=== PATIENT | female | born 1970 | race African-American/Black ===

== ENCOUNTER 2019-02-13 15:32 | Inpatient (IN) | payer OTHER ==
--- NOTE | 2019-02-13 16:04 | RADIOLOGY REPORT (SQ) ---
EXAM DESCRIPTION: CT HEAD WITHOUT COMPLETED DATE/TIME: 02/13/2019 3:52 pm REASON FOR STUDY: bed 19 stroke alert COMPARISON: None. TECHNIQUE: Axial images acquired through the brain without intravenous contrast. Images reviewed wi th bone, brain and subdural windows. Additional sagittal and coronal reconstructions were generated. Images stored on PACS. All CT scanners at this facility use dose modulation, iterative reconstruction, and/or weight based d osing when appropriate to reduce radiation dose to as low as reasonably achievable (ALARA). [facility]: Dose Right [facility]: CareDose [facility]: Dose Right [facility]: Teradose 4D [facility]: [employer] RADIATION DOSE: CT Rad equipment meets quality standard of care and radiation dose reduction techniq ues were employed. CTDIvol: 53.2 mGy. DLP: 964 mGy-cm. mGy. LIMITATIONS: None. FINDINGS: VENTRICLES: Normal size and contour. CEREBRUM: No masses. No hemorrhage. No midline shift. No evidence for acute infarction. Normal gra y/white matter differentiation. No areas of low density in the white matter. CEREBELLUM: No masses. No hemorrhage. No alteration of density. No evidence for acute infarction. EXTRAAXIAL SPACES: No fluid collections. No masses. ORBITS AND GLOBE: No intra- or extraconal masses. Normal contour of globe without masses. CALVARIUM: No fracture. PARANASAL SINUSES: No fluid or mucosal thickening. SOFT TISSUES: No mass or hematoma. OTHER: No other significant finding. IMPRESSION: No acute intracranial pathology. No CT evidence of acute stroke or hemorrhage. EVIDENCE OF ACUTE STROKE: NO. Findings reported to the emergency department by the CORE critical findings reporting system at the t callie of interpretation. COMMENT: Quality ID # [id number]: Final reports with documentation of one or more dose reduction techniques (e.g., Automated exposure control, adjustment of the mA and/or kV according to patient size, use of iterative reconstruction technique) TECHNICAL DOCUMENTATION: JOB ID: [id number] [employer]- All Rights Reserved Reading location - IP/workstation name: [email or web address]
[2019-02-13 16:05] LABS: ABSOLUTE EOSINOPHILS # (AUTO) 0.1 10^3/uL (0.0-0.6); ABSOLUTE LYMPHOCYTES (AUTO) 2.5 10^3/uL (0.5-4.7); ABSOLUTE MONOCYTES (AUTO) 0.7 10^3/uL (0.1-1.4); ABSOLUTE NEUT (AUTO) 4.4 10^3/uL (1.7-8.2); BASOPHILS % (AUTO) 0.6 % (0-2); EOSINOPHILS % (AUTO) 1.1 % (0-6); HEMATOCRIT 39.3 % (36.0-47.0); HEMOGLOBIN 13.4 g/dL (12.0-15.5); LYMPHOCYTES % (AUTO) 32.4 % (13-45); MEAN CORPUSCULAR HEMOGLOBIN 34.5 pg (27.0-33.4); MEAN CORPUSCULAR HGB CONC 34.2 g/dL (32.0-36.0); MEAN CORPUSCULAR VOLUME 101 fl (80-97); PLATELET COUNT 203 10^3/uL (150-450); RED BLOOD COUNT 3.89 10^6/uL (3.72-5.28); RED CELL DISTRIBUTION WIDTH 13.8 % (11.5-14.0); SEGMENTED NEUTROPHILS % (AUTO) 56.9 % (42-78); TOTAL CELLS COUNTED % (AUTO) 100 %; WHITE BLOOD COUNT 7.7 10^3/uL (4.0-10.5)
[2019-02-13 16:06] LABS: INTERNATIONAL RATION (INR) 1.01; PROTHROMBIN TIME 13.3 SEC (11.4-15.4)
[2019-02-13 16:07] LABS: PARTIAL THROMBOPLASTIN TIME 28.4 SEC (23.5-35.8)
[2019-02-13] MEDS ORDERED: LABETALOL HCL INJ 200 MG/40 ML VIAL IV ONE (16:13)
[2019-02-13] MEDS ORDERED: ALTEPLASE INJ 100 MG VIAL ONE (16:13)
--- NOTE | 2019-02-13 16:16 | ER Document Report ---
ED General - General Chief Complaint: S/S of Possible Stroke Stated Complaint: BLOOD SUGAR ISSUES Time Seen by Provider: 02/13/19 16:07 - HPI Notes: Patient is a 48-year-old female with no known medical history, who does not see a doctor regularly, who presents to the emergency department for evaluation. Initially she complained of "numbness and tingling" and a presyncopal episode. EMS noted that she was mildly hypoglycemic. I was pulled into the room by nursing based on their evaluation which revealed an NIH stroke scale of 14. Patient states numbness and tingling started about 230 this afternoon. She denies any recent head traumas. No difficulty seeing or swallowing. Past Medical History - General Information source: Patient - Social History Smoking Status: Current Every Day Smoker Family History: Reviewed & Not Pertinent Review of Systems - Review of Systems Constitutional: No symptoms reported EENT: No symptoms reported Cardiovascular: No symptoms reported Respiratory: No symptoms reported Gastrointestinal: No symptoms reported Genitourinary: No symptoms reported Musculoskeletal: No symptoms reported Skin: No symptoms reported Neurological/Psychological: See HPI Physical Exam - Vital signs Vitals: Pulse Ox 100 02/13/19 15:42 - Notes Notes: Vital signs reviewed, please refer to chart. Head is normocephalic, atraumatic. Pupils equal round, reactive to light. Neck is supple without meningismus. Heart is regular rate and rhythm. Lungs are clear to auscultation bilaterally. Abdomen is soft, nontender, normoactive bowel sounds throughout. Extremities without cyanosis, clubbing. Posterior calves are nontender. Peripheral pulses are equal. Skin is warm and dry. Patient is awake, alert, oriented x3. Patient shows left-sided facial weakness, diminished sensation to light touch throughout the entire left face, left upper and left lower extremities. She has 0 motion against gravity in left upper and left lower extremities. Hyperreflexive on the left as well. Patient is unable to shrug her left shoulder. The remainder of cranial nerves II through XII appear to be grossly intact. Strength is plus 5 out of 5 right upper and right lower extremities. Normal reflexes on the right. Sensation intact on the right. Course - Re-evaluation Re-evalutation: 02/13/19 16:16 Presents emergency department for evaluation. She is well within the TPA window. Given the fact that this is a young female, I did opt to perform a CT angiogram of the head. This is currently being performed. Patient was mode rately hypertensive, but on recheck her blood pressure was 173/103. Certainly while this is borderline, it does not exclude her from the use of TPA. Will consider low-dose labetalol and the patient returned from CT angiogram. 02/13/19 16:35 Went back into reexamine patient. She had received a low dose of labetalol and her blood pressure improved. NIH is now 0. She has full strength in the left upper and lower extremity. No longer with facial droop. We will continue to monitor. 02/13/19 18:18 Patient had recurrence of her symptoms when she was here in the department. Her blood pressure had become elevated again. I went back in to see the patient and she had again weakness on the left, diminished sensation, and dense facial droop with some mild expressive aphasia. She was started on nicardipine drip. Her current blood pressure is 153/81. On reexamination she had a very mild facial droop with the remainder of her symptoms were improving. I am concerned about hypertensive encephalopathy as the etiology of this patient's symptoms. I spoke with Dr. Barrow, who will admit the patient to the ICU for further care. - Vital Signs Vital signs: Temp Pulse Resp BP Pulse Ox 14 158/85 H 100 02/13/19 17:01 02/13/19 17:01 02/13/19 17:01 - Laboratory Result Diagrams: 02/13/19 15:55 02/13/19 15:55 Laboratory results interpreted by me: 02/13/19 02/13/19 02/13/19 15:55 15:55 16:25 MCV 101 H MCH 34.5 H Glucose 157 H POC Glucose Urine Blood MODERATE H 02/13/19 16:27 MCV MCH Glucose POC Glucose 146 H Urine Blood - EKG Interpretation by Me Additional EKG results interpreted by me: 02/13/19 16:17 Sinus mechanism with a rate of 79 bpm. Normal axis and intervals, no acute ST changes concerning for ischemia or infarction. Critical Care Note - Critical Care Note Total time excluding time spent on procedures (mins): 45 Discharge - Discharge Clinical Impression: Hypertensive encephalopathy Condition: Stable Disposition: ADMITTED INPATIENT Admitting Provider: Dr. Barrow Unit Admitted: ICU
[2019-02-13] MEDS ORDERED: LABETALOL HCL INJ 20 MG/4 ML DISP.SYRIN IV ONE (16:23)
[2019-02-13 16:24] LABS: ALBUMIN 4.1 g/dL (3.5-5.0); ALKALINE PHOSPHATASE 95 U/L (38-126); ANION GAP 8 (5-19); ASPARTATE AMINO TRANSFERASE 24 U/L (14-36); BILIRUBIN,TOTAL 0.3 mg/dL (0.2-1.3); BLOOD UREA NITROGEN 12 mg/dL (7-20); CALCIUM 9.5 mg/dL (8.4-10.2); CARBON DIOXIDE 27 mmol/L (22-30); CHLORIDE 106 mmol/L (98-107); CREATINE KINASE 91 U/L (30-135); GLUCOSE 157 mg/dL (75-110); POTASSIUM 3.7 mmol/L (3.6-5.0); TOTAL PROTEIN 7.5 g/dL (6.3-8.2)
--- NOTE | 2019-02-13 16:28 | RADIOLOGY REPORT (SQ) ---
EXAM DESCRIPTION: CHEST SINGLE VIEW COMPLETED DATE/TIME: 02/13/2019 4:20 pm REASON FOR STUDY: bed 19 stroke alert COMPARISON: None. EXAM PARAMETERS: NUMBER OF VIEWS: One view. TECHNIQUE: Single frontal radiographic view of the chest acquired. RADIATION DOSE: NA LIMITATIONS: None. FINDINGS: LUNGS AND PLEURA: No opacities, masses or pneumothorax. No pleural effusion. MEDIASTINUM AND HILAR STRUCTURES: No masses. Contour normal. HEART AND VASCULAR STRUCTURES: Heart normal in size. Normal vasculature. BONES: No acute findings. HARDWARE: None in the chest. OTHER: No other significant finding. IMPRESSION: NO ACUTE RADIOGRAPHIC FINDING IN THE CHEST. TECHNICAL DOCUMENTATION: JOB ID: [id number] [employer]- All Rights Reserved Reading location - IP/workstation name: [email or web address]
--- NOTE | 2019-02-13 16:34 | RADIOLOGY REPORT (SQ) ---
EXAM DESCRIPTION: CTA HEAD COMPLETED DATE/TIME: 02/13/2019 4:21 pm REASON FOR STUDY: bed [address] reddy r/o stroke flaccid left side, evaluate for large vessel occlus ion COMPARISON: None. TECHNIQUE: Post IV contrast scanning, thin section axial imaging through the brain to evaluate the a rterial structures. Source and MIP images are saved and reviewed on PACS. Advanced 3D imaging as volume-rendering, MIPs, SSD performed? yes All CT scanners at this facility use dose modulation, iterative reconstruction, and/or weight based d osing when appropriate to reduce radiation dose to as low as reasonably achievable (ALARA). [facility]: Dose Right [facility]: CareDose [facility]: Dose Right [facility]: Teradose 4D [facility]: [employer] [place] CONTRAST TYPE AND DOSE: contrast/concentration: Isovue 350.00 mg/ml; Total Contrast Delivered: 70.0 ml; Total Saline Delivered: 66.0 ml RENAL FUNCTION: None required. The patient is less than 50 years old. LIMITATIONS: None. FINDINGS: [place]: The anterior, middle, posterior cerebral arteries are all patent. No ev idence of aneurysm or focal stenosis. POSTERIOR CIRCULATION: The distal vertebral arteries are patent as is the basilar artery. No aneurysm . BRAIN: No gross enhancing lesions as visualized. The superior cerebral hemispheres are not included in the field of view. BONES: Intact as visualized. SINUSES: No fluid or mucosal thickening. OTHER: This report was discussed with Dr. Reddy, 1620 hours 02/13/2019. IMPRESSION: No [place] stenosis or occlusion. Patent bilateral carotid and vertebral arter ies intracranially and in the high cervical region. COMMENT: Pertinent findings on the imaging study reported as a CRITICAL RESULT to ROMAINE Leong t16:20 on 02/13/2019. Category of Critical Result: CT code stroke/CT angio [place] TECHNICAL DOCUMENTATION: JOB ID: [id number] Quality ID # [id number]: Final reports with documentation of one or more dose reduction techniques (e.g., Au tomated exposure control, adjustment of the mA and/or kV according to patient size, use of iterative reconstruction technique) 2010 [employer]- All Rights Reserved Reading location - IP/workstation name: [email or web address]
[2019-02-13 16:47] LABS: CREATINE KINASE MB 0.27 ng/mL (<4.55)
[2019-02-13 16:50] LABS: TROPONIN I < 0.012 ng/mL
[2019-02-13 16:51] LABS: APPEARANCE,URINE CLEAR; BILIRUBIN,URINE NEGATIVE (NEGATIVE); COLOR,URINE COLORLESS; GLUCOSE, URINE NEGATIVE (NEGATIVE); KETONES,URINE NEGATIVE (NEGATIVE); LEUKOCYTE ESTERASE,URINE NEGATIVE (NEGATIVE); NITRITE,URINE NEGATIVE (NEGATIVE); PROTEIN,URINE NEGATIVE (NEGATIVE); URINE SPECIFIC GRAVITY 1.011; UROBILINOGEN,URINE NEGATIVE mg/dL (<2.0)
[2019-02-13 17:05] LABS: ADD MANUAL MICROSCOPIC YES
[2019-02-13 17:06] LABS: RBC,URINE 0-1 /HPF
[2019-02-13 17:14] LABS: URINE AMPHETAMINES SCREEN NEGATIVE; URINE BARBITURATES SCREEN NEGATIVE; URINE BENZODIAZEPINES SCREEN NEGATIVE; URINE COCAINE SCREEN NEGATIVE; URINE MARIJUANA (THC) SCREEN NEGATIVE; URINE METHADONE SCREEN NEGATIVE; URINE PHENCYCLIDINE SCREEN NEGATIVE
[2019-02-13] MEDS ORDERED: NICARDIPINE HCL RTU, ISO-OS 20 MG/200 ML RTUINJ IV ONE (17:51)
[2019-02-13] MEDS: NICARDIPINE HCL RTU, ISO-OS 20 MG/200 ML RTUINJ IV PRN ×3 (17:58→22:55)
[2019-02-13] MEDS ORDERED: GLUCAGON,HUMAN RECOMB 1 MG INJ SUBCUT PRN (18:50)
[2019-02-13] MEDS ORDERED: ONDANSETRON HCL INJ/PF 4 MG/2 ML SDV IV PRN (18:50)
[2019-02-13] MEDS ORDERED: ACETAMINOPHEN 650 MG SUPP.RECT PR PRN (18:50)
[2019-02-13] MEDS ORDERED: DEXTROSE 40% GEL 15 GM TUBE PO PRN ×2 (18:50)
[2019-02-13] MEDS ORDERED: DEXTROSE 50%-WATER 25 GM/50 ML DISP.SYRIN IV PRN ×2 (18:50)
[2019-02-13] MEDS ORDERED: KETOROLAC TROMETHAMINE INJ/PF 30 MG/1 ML SDV ONE (19:04)
[2019-02-13] MEDS ORDERED: KETOROLAC TROMETHAMINE INJ/PF 30 MG/1 ML SDV IV ONE (19:04)
--- NOTE | 2019-02-13 19:24 | CRITICAL CARE ADMISSION REPORT ---
HPI Date:: 02/13/19 Time:: 19:12 Reason for ICU Reason:: Waxing and waning neurolgical symptoms. patient needs parenteral meds for BP control. HPI: - HPI Notes: Patient is a 48-year-old female with no known medical history, who does not see a doctor regularly, who presents to the emergency department for evaluation. Initially she complained of "numbness and tingling" and a presyncopal episode. EMS noted that she was mildly hypoglycemic. I was pulled into the room by nursing based on their evaluation which revealed an NIH stroke scale of 14. Patient states numbness and tingling started about 230 this afternoon. She den ies any recent head traumas. No difficulty seeing or swallowing. Past Medical History - General Information source: Patient - Social History Smoking Status: Current Every Day Smoker Family History: Reviewed & Not Pertinent Review of Systems - Review of Systems Constitutional: No symptoms reported EENT: No symptoms reported Cardiovascular: No symptoms reported Respiratory: No symptoms reported Gastrointestinal: No symptoms reported Genitourinary: No symptoms reported Musculoskeletal: No symptoms reported Skin: No symptoms reported Neurological/Psychological: See HPI Physical Exam - Vital signs Vitals: Pulse Ox 100 02/13/19 15:42 - Notes Notes: Vital signs reviewed, please refer to chart. Head is normocephalic, atraumatic. Pupils equal round, reactive to light. Neck is supple without meningismus. Heart is regular rate and rhythm. Lungs are clear to auscultation bilaterally. Abdomen is soft, nontender, normoactive bowel sounds throughout. Extremities without cyanosis, clubbing. Posterior calves are nontender. Peripheral pulses are equal. Skin is warm and dry. Patient is awake, alert, oriented x3. Patient shows left-sided facial weakness, diminished sensation to light touch throughout the entire left face, left upper and left lower extremities. She has 0 motion against gravity in left upper and left lower extremities. Hyperreflexive on the left as well. Patient is unable to shrug her left shoulder. The remainder of cranial nerves II through XII appear to be grossly intact. Strength is plus 5 out of - Diagnosis/Plan (1) Diabetes 1.5, managed as type 2 Is this a current diagnosis for this admission?: Yes Past Medical History Medical History: None Social/Family History - Social History Lives with: Alone Smoking Status: Current Every Day Smoker Hx Recreational Drug Use: No Drugs: None Review of Systems Constitutional: ABSENT: chills, fever(s), weight loss Eyes: ABSENT: visual disturbances Nose, Mouth, and Throat: ABSENT: headache(s) Cardiovascular: ABSENT: chest pain, edema Respiratory: ABSENT: dyspnea Gastrointestinal: ABSENT: abdominal pain, dysphagia Genitourinary: ABSENT: dysuria Musculoskeletal: ABSENT: deformity Neurological: PRESENT: abnormal movements, abnormal speech, focal weakness. ABSENT: syncope, tingling Psychiatric: ABSENT: hallucinations Endocrine: ABSENT: heat intolerance Hematologic/Lymphatic: ABSENT: easy bruising Physical Exam Vital Signs: Temp Pulse Resp BP Pulse Ox 25 H 153/95 H 100 02/13/19 18:54 02/13/19 18:54 02/13/19 18:53 Intake & Output 02/12/19 02/13/19 02/14/19 06:59 06:59 06:59 Intake Total 36 Balance 36 General appearance: PRESENT: no acute distress, cooperative, thin Head exam: PRESENT: normocephalic Eye exam: PRESENT: conjunctiva pink Mouth exam: PRESENT: moist Neck exam: ABSENT: thyromegaly Respiratory exam: PRESENT: clear to auscultation wendy, unlabored. ABSENT: accessory muscle use Cardiovascular exam: PRESENT: RRR, +S1, +S2 Pulses: PRESENT: normal carotid pulses GI/Abdominal exam: PRESENT: normal bowel sounds, soft. ABSENT: tenderness Rectal exam: ABSENT: deferred Extremities exam: ABSENT: calf tenderness Neurological exam: PRESENT: alert, altered, aphasic Psychiatric exam: PRESENT: flat affect Laboratory/Radiographs Laboratory Results: 02/13/19 15:55 02/13/19 15:55 02/13/19 02/13/19 02/13/19 15:55 15:55 16:25 WBC 7.7 RBC 3.89 Hgb 13.4 Hct 39.3 MCV 101 H MCH 34.5 H MCHC 34.2 RDW 13.8 Plt Count 203 Seg Neutrophils % 56.9 Sodium 141.2 Potassium 3.7 Chloride 106 Carbon Dioxide 27 Anion Gap 8 BUN 12 Creatinine 0.71 Est GFR ( Amer) > 60 Glucose 157 H Calcium 9.5 Total Bilirubin 0.3 AST 24 Alkaline Phosphatase 95 Total Protein 7.5 Albumin 4.1 Urine Color COLORLESS Urine Appearance CLEAR Urine pH 9.0 Ur Specific [place] 1.011 Urine Protein NEGATIVE Urine Glucose (UA) NEGATIVE Urine Ketones NEGATIVE Urine Blood MODERATE H Urine Nitrite NEGATIVE Ur Leukocyte Esterase NEGATIVE Ur Squamous Epith Cells RARE 02/13/19 02/13/19 15:55 15:55 Creatine Kinase 91 CK-MB (CK-2) 0.27 Troponin I < 0.012 Impressions: Head CTA 02/13/19 00:00 IMPRESSION: No [place] of [place] stenosis or occlusion. Patent bilateral carotid and vertebral arteries intracranially and in the high cervical region. Chest X-Ray 02/13/19 15:42 IMPRESSION: NO ACUTE RADIOGRAPHIC FINDING IN THE CHEST. Head CT 02/13/19 15:42 IMPRESSION: No acute intracranial pathology. No CT evidence of acute stroke or hemorrhage. EVIDENCE OF ACUTE STROKE: NO. Findings reported to the emergency department by the [facility] critical findings reporting system at the time of interpretation. Critical Time Critical Time (minutes): 60 -: The care of a critically ill patient is dynamic. This note represents a static moment in the admission process. orders and treatments may be given sim ulataneously and urgentl, and time is not event representative of the treatment process. This patient requires Critical Care secondary to life threating organ or limb dysfunction. Without the need for Critical Care services, the patient is at risk for increasid mortality and morbidity. Assessment & Plan - Diagnosis (1) Diabetes 1.5, managed as type 2 Is this a current diagnosis for this admission?: Yes Plan: Will check glucometers q 6h and I have ordered a coverage schedule (2) Hypertensive encephalopathy Is this a current diagnosis for this admission?: Yes Plan: The patient had very elevated BP on presentation and on and off since than. She developed weakness of her left side at home and aphasia. this is what isiah t her to the ED. On initial presentation she had had a NIH score of 14 which almost completley reversed less tjhan 1/2 hour when her bp dropped down. The MD was about ready to give TPA AFTER THE PATIENT HAD A NEGATIVE CT BRAIN. tHAN HER SYMPTOMS ALMOST COMPLETLEY REVERSED. SINCE THAT TIME THERE HAS BEEN vacillation in HER NEUROLOGICAL EXAM WHICH GENERALLY CORRESPoNDS TO HER bp. wHEN HER bp is over 180 systolic or > 120 diastolic her symptms exacerabte. Her speech becomes difficult and she develops a left hemiplegia and left facial.
[2019-02-13] MEDS ORDERED: NICARDIPINE HCL RTU, ISO-OS 20 MG/200 ML RTUINJ IV PRN (22:55)
[2019-02-13] MEDS: ENOXAPARIN SODIUM INJ 30 MG/0.3 ML DISP.SYRIN SUBCUT SCH (23:40)
[2019-02-14] MEDS: ACETAMINOPHEN 325 MG TABLET PO PRN ×3 (00:13→23:41)
[2019-02-14 04:42] LABS: ABSOLUTE BASOPHILS # (AUTO) 0.1 10^3/uL (0.0-0.2); ABSOLUTE LYMPHOCYTES (AUTO) 2.1 10^3/uL (0.5-4.7); ABSOLUTE MONOCYTES (AUTO) 0.6 10^3/uL (0.1-1.4); ABSOLUTE NEUT (AUTO) 5.9 10^3/uL (1.7-8.2); BASOPHILS % (AUTO) 0.6 % (0-2); EOSINOPHILS % (AUTO) 0.3 % (0-6); HEMATOCRIT 41.2 % (36.0-47.0); HEMOGLOBIN 14.2 g/dL (12.0-15.5); MEAN CORPUSCULAR HEMOGLOBIN 34.4 pg (27.0-33.4); MEAN CORPUSCULAR HGB CONC 34.4 g/dL (32.0-36.0); MEAN CORPUSCULAR VOLUME 100 fl (80-97); MONOCYTES % (AUTO) 6.8 % (3-13); PLATELET COUNT 183 10^3/uL (150-450); RED BLOOD COUNT 4.13 10^6/uL (3.72-5.28); RED CELL DISTRIBUTION WIDTH 13.5 % (11.5-14.0); SEGMENTED NEUTROPHILS % (AUTO) 68.3 % (42-78); TOTAL CELLS COUNTED % (AUTO) 100 %; WHITE BLOOD COUNT 8.6 10^3/uL (4.0-10.5)
[2019-02-14 04:56] LABS: ANION GAP 10 (5-19); BLOOD UREA NITROGEN 6 mg/dL (7-20); CALCIUM 9.7 mg/dL (8.4-10.2); CARBON DIOXIDE 23 mmol/L (22-30); CHLORIDE 108 mmol/L (98-107); GLUCOSE 113 mg/dL (75-110); POTASSIUM 3.6 mmol/L (3.6-5.0)
[2019-02-14] MEDS: NICARDIPINE HCL RTU, ISO-OS 20 MG/200 ML RTUINJ IV PRN (06:15)
--- NOTE | 2019-02-14 06:42 | RADIOLOGY REPORT (SQ) ---
CLINICAL HISTORY: admission COMPARISON: February 13, 2019. TECHNIQUE: XR CHEST 1 VIEW 02/14/2019 6:00 AM CDT FINDINGS: Cardiac silhouette is normal in size. Lungs are clear without consolidation, atelectasis, mass or edema. There is no pleural effusion. There is no pneumothorax. There are no acute osseous findings. IMPRESSION: Clear lungs.
--- NOTE | 2019-02-14 07:49 | CRITICAL CARE ADMISSION REPORT ---
[facility] Date:: 02/14/19 HPI: - [facility] Notes: Patient is a 48-year-old female with no known medical history, who does not see a doctor regularly, who presents to the emergency department for evaluation. Initially she complained of "numbness and tingling" and a presyncopal episode. EMS noted that she was mildly hypoglycemic. I was pulled into the room by nursing based on their evaluation which revealed an NIH stroke scale of 14. Patient states numbness and tingling started about 230 this afternoon. She denies any recent head traumas. No difficulty seeing or swallowing. Past Medical History - General Information source: Patient - Social History Smoking Status: Current Every Day Smoker Family History: Reviewed & Not Pertinent Review of Systems - Review of Systems Constitutional: No symptoms reported EENT: No symptoms reported Cardiovascular: No symptoms reported Respiratory: No symptoms reported Gastrointestinal: No symptoms reported Genitourinary: No symptoms reported Musculoskeletal: No symptoms reported Skin: No symptoms reported Neurological/Psychological: See HPI Physical Exam - Vital signs Vitals: Pulse Ox 100 02/13/19 15:42 - Notes Notes: Vital signs reviewed, please refer to chart. Head is normocephalic, atraumatic. Pupils equal round, reactive to light. Neck is supple without meningismus. Heart is regular rate and rhythm. Lungs are clear to auscultation bilaterally. Abdomen is soft, nontender, normoactive bowel sounds throughout. Extremities without cyanosis, clubbing. Posterior calves are nontender. Peripheral pulses are equal. Skin is warm and dry. Patient is awake, alert, oriented x3. Patient shows left-sided facial weakness, diminished sensation to light touch throughout the entire left face, left upper and left lower extremities. She has 0 motion against gravity in left upper and left lower extremities. Hyperreflexive on the left as well. Patient is unable to shrug her left shoulder. The remainder of cranial nerves II through XII appear to be grossly intact. Strength is plus 5 out of Social/Family History - Social History Lives with: Alone Smoking Status: Current Every Day Smoker Frequency of Alcohol Use: Occasional Hx Recreational Drug Use: No Drugs: None - Medication/Allergies Home Medications: No Home Medications 02/13/19 Allergies/Adverse Reactions: No Known Drug Allergies Allergy (Verified 02/13/19 20:21) Physical Exam Vital Signs: Temp Pulse Resp BP Pulse Ox 99.2 F 89 16 127/81 H 100 02/14/19 04:00 02/13/19 22:45 02/14/19 06:01 02/14/19 06:00 02/14/19 06:01 Intake & Output 02/12/19 02/13/19 02/14/19 11:59 11:59 11:59 Intake Total 560 Output Total 1950 Balance -1390 Weight 75.3 kg Weight/Height Weight 75.3 kg Height 5 ft 7 in Laboratory/Radiographs Laboratory Results: 02/14/19 04:26 02/14/19 04:26 02/13/19 02/13/19 02/13/19 15:55 15:55 16:25 WBC 7.7 RBC 3.89 Hgb 13.4 Hct 39.3 MCV 101 H MCH 34.5 H MCHC 34.2 RDW 13.8 Plt Count 203 Seg Neutrophils % 56.9 Sodium 141.2 Potassium 3.7 Chloride 106 Carbon Dioxide 27 Anion Gap 8 BUN 12 Creatinine 0.71 Est GFR ( Amer) > 60 Glucose 157 H Calcium 9.5 Total Bilirubin 0.3 AST 24 Alkaline Phosphatase 95 Total Protein 7.5 Albumin 4.1 Urine Color COLORLESS Urine Appearance CLEAR Urine pH 9.0 Ur Specific [place] 1.011 Urine Protein NEGATIVE Urine Glucose (UA) NEGATIVE Urine Ketones NEGATIVE Urine Blood MODERATE H Urine Nitrite NEGATIVE Ur Leukocyte Esterase NEGATIVE Ur Squamous Epith Cells RARE 02/14/19 02/14/19 04:26 04:26 WBC 8.6 RBC 4.13 Hgb 14.2 Hct 41.2 MCV 100 H MCH 34.4 H MCHC 34.4 RDW 13.5 Plt Count 183 Seg Neutrophils % 68.3 Sodium 140.6 Potassium 3.6 Chloride 108 H Carbon Dioxide 23 Anion Gap 10 BUN 6 L Creatinine 0.49 L Est GFR ( Amer) > 60 Glucose 113 H Calcium 9.7 Total Bilirubin AST Alkaline Phosphatase Total Protein Albumin Urine Color Urine Appearance Urine pH Ur Specific [place] Urine Protein Urine Glucose (UA) Urine Ketones Urine Blood Urine Nitrite Ur Leukocyte Esterase Ur Squamous Epith Cells 02/13/19 02/13/19 15:55 15:55 Creatine Kinase 91 CK-MB (CK-2) 0.27 Troponin I < 0.012 Impressions: Head CTA 02/13/19 00:00 IMPRESSION: No [place] stenosis or occlusion. Patent bilateral carotid and vertebral arteries intracranially and in the high cervical region. Head CT 02/13/19 15:42 IMPRESSION: No acute intracranial pathology. No CT evidence of acute stroke or hemorrhage. EVIDENCE OF ACUTE STROKE: NO. Findings reported to the emergency department by the CORE critical findings reporting system at the time of interpretation. Chest X-Ray 02/14/19 06:00 IMPRESSION: Clear lungs. Critical Time -: The care of a critically ill patient is dynamic. This note represents a static moment in the admission process. orders and treatments may be given simulataneously and urgentl, and time is not membership sales representative of the treatment process. This patient requires Critical Care secondary to life threating organ or limb dysfunction. Without the need for Critical Care services, the patient is at risk for increasid mortality and morbidity.
--- NOTE | 2019-02-14 08:50 | EKG REPORT ---
SEVERITY:- NORMAL ECG - SINUS RHYTHM : Confirmed by: Blaire Oneil MD 14-Feb-2019 08:48:37
[2019-02-14] MEDS: ENOXAPARIN SODIUM INJ 30 MG/0.3 ML DISP.SYRIN SUBCUT SCH (09:58)
[2019-02-14] MEDS ORDERED: AMLODIPINE BESYLATE 5 MG TABLET PO SCH (10:00)
--- NOTE | 2019-02-14 10:15 | PDOC PROGRESS REPORT ---
Subjective Progress Note for:: 02/14/19 Subjective:: The patient is back to baseline and has been there since last As noted there was quite a vacillation in her neuri sx last night in accorrdance with her BP. Th morning she is moving her left side with 5/5 dtrength and her speeech id fluent. Reason For Visit: HYPERTENSIVE ENCEPHALOPATHY Physical Exam Vital Signs: Temp Pulse Resp BP Pulse Ox 97.9 F 72 21 H 140/97 H 99 02/14/19 08:00 02/14/19 08:00 02/14/19 08:00 02/14/19 08:00 02/14/19 08:00 Intake & Output 02/13/19 02/14/19 02/15/19 06:59 06:59 06:59 Intake Total 560 Output Total 1950 0 Balance -1390 0 Weight 75.3 kg General appearance: PRESENT: no acute distress, thin Eye exam: PRESENT: conjunctiva pink Mouth exam: PRESENT: moist Neck exam: ABSENT: carotid bruit, JVD, lymphadenopathy Cardiovascular exam: PRESENT: bradycardia, +S1, +S2 Pulses: PRESENT: normal carotid pulses GI/Abdominal exam: PRESENT: normal bowel sounds, soft Rectal exam: PRESENT: deferred Neurological exam: PRESENT: alert, altered, awake, oriented to person, oriented to place, oriented to time, oriented to situation, reflexes normal, CN II-XII grossly intact, motor sensory deficit Results Laboratory Results: 02/14/19 04:26 02/14/19 04:26 02/13/19 02/13/19 02/13/19 15:55 15:55 16:25 WBC 7.7 RBC 3.89 Hgb 13.4 Hct 39.3 MCV 101 H MCH 34.5 H MCHC 34.2 RDW 13.8 Plt Count 203 Seg Neutrophils % 56.9 Sodium 141.2 Potassium 3.7 Chloride 106 Carbon Dioxide 27 Anion Gap 8 BUN 12 Creatinine 0.71 Est GFR ( Amer) > 60 Glucose 157 H Calcium 9.5 Total Bilirubin 0.3 AST 24 Alkaline Phosphatase 95 Total Protein 7.5 Albumin 4.1 Urine Color COLORLESS Urine Appearance CLEAR Urine pH 9.0 Ur Specific [place] 1.011 Urine Protein NEGATIVE Urine Glucose (UA) NEGATIVE Urine Ketones NEGATIVE Urine Blood MODERATE H Urine Nitrite NEGATIVE Ur Leukocyte Esterase NEGATIVE Ur Squamous Epith Cells RARE 02/14/19 02/14/19 04:26 04:26 WBC 8.6 RBC 4.13 Hgb 14.2 Hct 41.2 MCV 100 H MCH 34.4 H MCHC 34.4 RDW 13.5 Plt Count 183 Seg Neutrophils % 68.3 Sodium 140.6 Potassium 3.6 Chloride 108 H Carbon Dioxide 23 Anion Gap 10 BUN 6 L Creatinine 0.49 L Est GFR ( Amer) > 60 Glucose 113 H Calcium 9.7 Total Bilirubin AST Alkaline Phosphatase Total Protein Albumin Urine Color Urine Appearance Urine pH Ur Specific [place] Urine Protein Urine Glucose (UA) Urine Ketones Urine Blood Urine Nitrite Ur Leukocyte Esterase Ur Squamous Epith Cells 02/13/19 02/13/19 15:55 15:55 Creatine Kinase 91 CK-MB (CK-2) 0.27 Troponin I < 0.012 Impressions: Head CTA 02/13/19 00:00 IMPRESSION: No [place] stenosis or occlusion. Patent bilateral carotid and vertebral arteries intracranially and in the high cervical region. Head CT 02/13/19 15:42 IMPRESSION: No acute intracranial pathology. No CT evidence of acute stroke or hemorrhage. EVIDENCE OF ACUTE STROKE: NO. Findings reported to the emergency department by the CORE critical findings reporting system at the time of interpretation. Chest X-Ray 02/14/19 06:00 IMPRESSION: Clear lungs. Assessment & Plan - Diagnosis (1) Diabetes 1.5, managed as type 2 Is this a current diagnosis for this admission?: Yes (2) Hypertensive encephalopathy Is this a current diagnosis for this admission?: Yes - Time Time Spent with patient: 25-34 minutes Anticipated discharge: Home Within: within 36 hours
[2019-02-14] MEDS: CHLORTHALIDONE 25 MG TABLET PO SCH (11:00)
--- NOTE | 2019-02-14 16:45 | RADIOLOGY REPORT (SQ) ---
EXAM DESCRIPTION: CAROTID DOPPLER COMPLETED DATE/TIME: 02/14/2019 3:35 pm REASON FOR STUDY: CVA symptoms COMPARISON: None. TECHNIQUE: Grayscale ultrasound, Doppler velocity and spectra, and color Doppler images acquired of the extra-cranial carotid and vertebral arteries. Images stored on PACS. LIMITATIONS: None. FINDINGS: RIGHT CAROTID CCA Velocities: Within normal limits. ICA Velocities Peak systolic 73 cm/s. End diastolic 29 cm/s. Proximal ICA/CCA peak systolic ratio 0.92. Spectra normal. No significant plaque. LEFT CAROTID CCA Velocities: Within normal limits. ICA Velocities Peak systolic 64 cm/s. End diastolic 27 cm/s. Proximal ICA/CCA peak systolic ratio 0.88. Spectra normal. No significant plaque. VERTEBRAL ARTERIES: Antegrade flow. Normal waveforms. SUBCLAVIAN ARTERIES: No finding. OTHER: No other significant finding. IMPRESSION: NO HEMODYNAMICALLY SIGNIFICANT STENOSIS. COMMENT: Quality ID #[id number]: Velocity criteria are extrapolated from the diameter data as defined by t he Society of Radiologists in Ultrasound Consensus Conference. Radiology 2003: 229; 340-346. TECHNICAL DOCUMENTATION: JOB ID: [id number] [employer]- All Rights Reserved Reading location - IP/workstation name: [email or web address]
[2019-02-15] MEDS: ACETAMINOPHEN 325 MG TABLET PO PRN (06:38)
--- NOTE | 2019-02-15 08:33 | PDOC PROGRESS REPORT ---
Subjective Progress Note for:: 02/15/19 Subjective:: The patient is back to baseline and has been there since last As noted there was quite a vacillation in her neuri sx last night in accorrdance with her BP. morning she is moving her left side with 5/5 dtrength and her speeech id fluent. 02/15 The aptient remains neuriologicallly stable. we are trttirating meds as her Bp remains a little high Will remove montez. Chapo may be discharged later today. Her carotid doppler is normal Reason For Visit: HYPERTENSIVE ENCEPHALOPATHY Physical Exam Vital Signs: Temp Pulse Resp BP Pulse Ox 98.2 F 74 11 L 136/97 H 100 02/14/19 12:00 02/14/19 22:00 02/15/19 06:16 02/15/19 06:16 02/15/19 06:16 Intake & Output 02/14/19 02/15/19 02/16/19 06:59 06:59 06:59 Intake Total 560 100 Output Total 1950 460 Balance -1390 -360 Weight 75.3 kg 75.3 kg Results Laboratory Results: 02/14/19 04:26 02/14/19 04:26 02/13/19 02/13/19 15:55 15:55 Creatine Kinase 91 CK-MB (CK-2) 0.27 Troponin I < 0.012 Impressions: Head CTA 02/13/19 00:00 IMPRESSION: No [place] stenosis or occlusion. Patent bilateral carotid and vertebral arteries intracranially and in the high cervical region. Head CT 02/13/19 15:42 IMPRESSION: No acute intracranial pathology. No CT evidence of acute stroke or hemorrhage. EVIDENCE OF ACUTE STROKE: NO. Findings reported to the emergency department by the [facility] critical findings reporting system at the time of interpretation. Chest X-Ray 02/14/19 06:00 IMPRESSION: Clear lungs. Carotid Doppler Study 02/14/19 10:02 IMPRESSION: NO HEMODYNAMICALLY SIGNIFICANT STENOSIS. Assessment & Plan - Diagnosis (1) Hypertensive encephalopathy Is this a current diagnosis for this admission?: Yes Plan: The patient had very elevated BP on presentation and on and off since than. She developed weakness of her left side at home and aphasia. this is what brought her to the ED. On initial presentation she had had a NIH score of 14 which almost completley reversed less tjhan /2 hour when her bp dropped down. The MD was about ready to give TPA AFTER THE PATIENT HAD A NEGATIVE CT BRAIN. tHAN HER SYMPTOMS ALMOST SHANIKA REVERSED. SINCE THAT TIME THERE HAS BEEN vacillation in HER NEUROLOGICAL EXAM WHICH GENERALLY CORRESPoNDS TO HER bp. wHEN HER bp is over 180 systolic or > 120 diastolic her symptms exacerabte. Her speech becomes difficult and she develops a left hemiplegia and left facial. 02/15 neurological status stable and back to her baseline. (2) Diabetes 1.5, managed as type 2 Is this a current diagnosis for this admission?: Yes Plan: Will check glucometers q 6h and I have ordered a coverage schedule Will recheck glucometers today to see if patient is indeed diabetic - Time Time Spent with patient: 25-34 minutes Medications reviewed and adjusted accordingly: Yes Anticipated discharge: Home Within: within 24 hours
[2019-02-15] MEDS: CHLORTHALIDONE 25 MG TABLET PO SCH (09:53)
[2019-02-15] MEDS: ENOXAPARIN SODIUM INJ 30 MG/0.3 ML DISP.SYRIN SUBCUT SCH (09:54)
[2019-02-15] MEDS ORDERED: AMLODIPINE BESYLATE 10 MG TABLET PO SCH (10:00)
[2019-02-15 13:45] VITALS: BP 135/82
--- NOTE | 2019-03-25 11:02 | PDOC DISCHARGE SUMMARY ---
Impression - Admit/DC Date/PCP Admission Date/Primary Care Provider: 02/13/19 18:27 Discharge Date: 02/15/19 - Discharge Diagnosis (1) Hypertensive encephalopathy Is this a current diagnosis for this admission?: Yes (2) Diabetes 1.5, managed as type 2 Is this a current diagnosis for this admission?: Yes - Additional Information Resuscitation Status: Full Code Discharge Diet: Other (Comments) - LOw sodium Discharge Activity: Activity As Tolerated Referrals: [facility] [Provider Group] - 02/17/19 8:00 am (Patient requests to make own appointment when clinic opens.) Prescriptions: Chlorthalidone [Hygroton 25 mg Tablet] 25 mg PO QAM #90 tablet Amlodipine Besylate [Norvasc 10 mg Tablet] 10 mg PO DAILY #90 tablet Home Medications: Amlodipine Besylate [Norvasc 10 mg Tablet] 10 mg PO DAILY #90 tablet 02/15/19 Chlorthalidone [Hygroton 25 mg Tablet] 25 mg PO QAM #90 tablet 02/15/19 History of Present Illiness History of Present Illness: - HPI Notes: Patient is a 48-year-old female with no known medical history, who does not see a doctor regularly, who presents to the emergency department for evaluation. Initially she complained of "numbness and tingling" and a presyncopal episode. EMS noted that she was mildly hypoglycemic. I was pulled into the room by nursing based on their evaluation which revealed an NIH stroke scale of 14. Patient states numbness and tingling started about 230 this afternoon. She denies any recent head traumas. No difficulty seeing or swallowing. Past Medical History - General Information source: Patient - Social History Smoking Status: Current Every Day Smoker Family History: Reviewed & Not Pertinent Review of Systems - Review of Systems Constitutional: No symptoms reported EENT: No symptoms reported Cardiovascular: No symptoms reported Respiratory: No symptoms reported Gastrointestinal: No symptoms reported Genitourinary: No symptoms reported Musculoskeletal: No symptoms reported Skin: No symptoms reported Neurological/Psychological: See HPI Physical Exam - Vital signs Vitals: Pulse Ox 100 02/13/19 15:42 - Notes Notes: Vital signs reviewed, please refer to chart. Head is normocephalic, atraumatic. Pupils equal round, reactive to light. Neck is supple without meningismus. Heart is regular rate and rhythm. Lungs are clear to auscultation bilaterally. Abdomen is soft, nontender, normoactive bowel sounds throughout. Extremities without cyanosis, clubbing. Posterior calves are nontender. Peripheral pulses are equal. Skin is warm and dry. Patient is awake, alert, oriented x3. Patient shows left-sided facial weakness, diminished sensation to light touch throughout the entire left face, left upper and left lower extremities. She has 0 motion against gravity in left upper and left lower extremities. H yperreflexive on the left as well. Patient is unable to shrug her left shoulder. The remainder of cranial nerves II through XII appear to be grossly intact. Strength is plus 5 out of Physical Exam Vital Signs: Temp Pulse Resp BP Pulse Ox 98.6 F 65 16 135/82 H 97 02/15/19 16:00 02/15/19 14:55 02/15/19 14:55 02/15/19 14:55 02/15/19 14:55 General appearance: PRESENT: no acute distress Head exam: PRESENT: atraumatic Eye exam: PRESENT: conjunctiva pink, EOMI Mouth exam: PRESENT: moist, neck supple Neck exam: PRESENT: full ROM. ABSENT: thyromegaly Respiratory exam: PRESENT: symmetrical, unlabored. ABSENT: accessory muscle use Cardiovascular exam: PRESENT: RRR Pulses: PRESENT: normal carotid pulses GI/Abdominal exam: PRESENT: normal bowel sounds, soft Extremities exam: ABSENT: calf tenderness Musculoskeletal exam: PRESENT: ambulatory, full ROM Neurological exam: PRESENT: alert, altered, awake, oriented to time, oriented to situation, CN II-XII grossly intact, motor sensory deficit, normal gait Psychiatric exam: PRESENT: appropriate affect Results Laboratory Results: WBC 8.6 10^3/uL (4.0-10.5) 02/14/19 04:26 RBC 4.13 10^6/uL (3.72-5.28) 02/14/19 04:26 Hgb 14.2 g/dL (12.0-15.5) 02/14/19 04:26 Hct 41.2 % (36.0-47.0) 02/14/19 04:26 MCV 100 fl (80-97) H 02/14/19 04:26 MCH 34.4 pg (27.0-33.4) H 02/14/19 04:26 MCHC 34.4 g/dL (32.0-36.0) 02/14/19 04:26 RDW 13.5 % (11.5-14.0) 02/14/19 04:26 Plt Count 183 10^3/uL (150-450) 02/14/19 04:26 Lymph % (Auto) 24.0 % (13-45) 02/14/19 04:26 [place] % (Auto) 6.8 % (3-13) 02/14/19 04:26 Eos % (Auto) 0.3 % (0-6) 02/14/19 04:26 Baso % (Auto) 0.6 % (0-2) 02/14/19 04:26 Absolute Neuts (auto) 5.9 10^3/uL (1.7-8.2) 02/14/19 04:26 Absolute Lymphs (auto) 2.1 10^3/uL (0.5-4.7) 02/14/19 04:26 Absolute Monos (auto) 0.6 10^3/uL (0.1-1.4) 02/14/19 04:26 Absolute Eos (auto) 0.0 10^3/uL (0.0-0.6) 02/14/19 04:26 Absolute Basos (auto) 0.1 10^3/uL (0.0-0.2) 02/14/19 04:26 Seg Neutrophils % 68.3 % (42-78) 02/14/19 04:26 PT 13.3 SEC (11.4-15.4) 02/13/19 15:54 INR 1.01 02/13/19 15:54 APTT 28.4 SEC (23.5-35.8) 02/13/19 15:54 Sodium 140.6 mmol/L (137-145) 02/14/19 04:26 Potassium 3.6 mmol/L (3.6-5.0) 02/14/19 04:26 Chloride 108 mmol/L (98-107) H 02/14/19 04:26 Carbon Dioxide 23 mmol/L (22-30) 02/14/19 04:26 Anion Gap 10 (5-19) 02/14/19 04:26 BUN 6 mg/dL (7-20) L 02/14/19 04:26 Creatinine 0.49 mg/dL (0.52-1.25) L 02/14/19 04:26 Est GFR ( Amer) > 60 (>60) 02/14/19 04:26 Est GFR (MDRD) Non-Af > 60 (>60) 02/14/19 04:26 Glucose 113 mg/dL (75-110) H 02/14/19 04:26 POC Glucose 97 mg/dL (70-110) 02/15/19 11:49 Calcium 9.7 mg/dL (8.4-10.2) 02/14/19 04:26 Total Bilirubin 0.3 mg/dL (0.2-1.3) 02/13/19 15:55 Direct Bilirubin 0.0 mg/dL (0.0-0.4) 02/13/19 15:55 Neonat Total Bilirubin Not Reportable 02/13/19 15:55 Neonat Direct Bilirubin Not Reportable 02/13/19 15:55 Neonat Indirect Bili Not Reportable 02/13/19 15:55 AST 24 U/L (14-36) 02/13/19 15:55 ALT 28 U/L (<35) 02/13/19 15:55 Alkaline Phosphatase 95 U/L (38-126) 02/13/19 15:55 Creatine Kinase 91 U/L (30-135) 02/13/19 15:55 CK-MB (CK-2) 0.27 ng/mL (<4.55) 02/13/19 15:55 Troponin I < 0.012 ng/mL 02/13/19 15:55 Total Protein 7.5 g/dL (6.3-8.2) 02/13/19 15:55 Albumin 4.1 g/dL (3.5-5.0) 02/13/19 15:55 Urine Color COLORLESS 02/13/19 16:25 Urine Appearance CLEAR 02/13/19 16:25 Urine pH 9.0 (5.0-9.0) 02/13/19 16:25 Ur Specific [place] 1.011 02/13/19 16:25 Urine Protein NEGATIVE mg/dL (NEGATIVE) 02/13/19 16:25 Urine Glucose (UA) NEGATIVE mg/dL (NEGATIVE) 02/13/19 16:25 Urine Ketones NEGATIVE mg/dL (NEGATIVE) 02/13/19 16:25 Urine Blood MODERATE (NEGATIVE) H 02/13/19 16:25 Urine Nitrite NEGATIVE (NEGATIVE) 02/13/19 16:25 Urine Bilirubin NEGATIVE (NEGATIVE) 02/13/19 16:25 Urine Urobilinogen NEGATIVE mg/dL (<2.0) 02/13/19 16:25 Ur Leukocyte Esterase NEGATIVE (NEGATIVE) 02/13/19 16:25 Urine RBC 0-1 /HPF 02/13/19 16:25 Ur Squamous Epith Cells RARE /HPF 02/13/19 16:25 Urine Mucus TRACE 02/13/19 16:25 Urine Ascorbic Acid NEGATIVE (NEGATIVE) 02/13/19 16:25 Urine Opiates Screen NEGATIVE 02/13/19 16:25 Urine Methadone Screen NEGATIVE 02/13/19 16:25 Ur Barbiturates Screen NEGATIVE 02/13/19 16:25 Ur Phencyclidine Scrn NEGATIVE 02/13/19 16:25 Ur Amphetamines Screen NEGATIVE 02/13/19 16:25 U Benzodiazepines Scrn NEGATIVE 02/13/19 16:25 Urine Cocaine Screen NEGATIVE 02/13/19 16:25 U Marijuana (THC) Screen NEGATIVE 02/13/19 16:25 02/13/19 15:55 CK-MB (CK-2) 0.27 Troponin I < 0.012 Impressions: Head CTA 02/13/19 00:00 IMPRESSION: No [place] stenosis or occlusion. Patent bilateral carotid and vertebral arteries intracranially and in the high cervical region. Chest X-Ray 02/13/19 15:42 IMPRESSION: NO ACUTE RADIOGRAPHIC FINDING IN THE CHEST. Head CT 02/13/19 15:42 IMPRESSION: No acute intracranial pathology. No CT evidence of acute stroke or hemorrhage. EVIDENCE OF ACUTE STROKE: NO. Findings reported to the emergency department by the [facility] critical findings reporting system at the time of interpretation. Chest X-Ray 02/14/19 06:00 IMPRESSION: Clear lungs. Carotid Doppler Study 02/14/19 10:02 IMPRESSION: NO HEMODYNAMICALLY SIGNIFICANT STENOSIS. Stroke Is this a Stroke Patient?: No Acute Heart Failure - Is this a Heart Failure Patient?: No
== END 2019-02-15 17:17 | disposition home or self-care (01) | DRG 78 ==
LOC: ER 15:32 → EH 18:27 → ICU 22:25
PROVIDERS: ADMIT Internal Medicine; ATTEND Internal Medicine
DX: I67.4 Hypertensive encephalopathy (principal); R47.01 Aphasia; F17.200 Nicotine dependence, unspecified, uncomplicated; E13.9 Other specified diabetes mellitus without complications; R29.810 Facial weakness
CPT/HCPCS: 36415; 51702; 70450; 70496; 71045; 80048; 80053; 80307; 81001; 82550; 82553; 82962; 84484; 85025; 85610; 85730; 93005; 93010; 93880; 96374; 96375; 99291; J1650; J1885; J3490

== ENCOUNTER → 2019-03-07 | Outpatient (CLI) | payer OTHER ==
[2019-03-07 09:42] LABS: APPEARANCE,URINE CLEAR; BILIRUBIN,URINE NEGATIVE (NEGATIVE); COLOR,URINE YELLOW; GLUCOSE, URINE NEGATIVE (NEGATIVE); KETONES,URINE NEGATIVE (NEGATIVE); LEUKOCYTE ESTERASE,URINE NEGATIVE (NEGATIVE); NITRITE,URINE NEGATIVE (NEGATIVE); PROTEIN,URINE NEGATIVE (NEGATIVE); URINE SPECIFIC GRAVITY 1.009; UROBILINOGEN,URINE NEGATIVE mg/dL (<2.0)
[2019-03-07 10:12] LABS: ANION GAP 10 (5-19); BLOOD UREA NITROGEN 17 mg/dL (7-20); CALCIUM 9.7 mg/dL (8.4-10.2); CARBON DIOXIDE 29 mmol/L (22-30); CHLORIDE 100 mmol/L (98-107); CHOLESTEROL 174.59 mg/dL (0-200); GLUCOSE 108 mg/dL (75-110); POTASSIUM 3.4 mmol/L (3.6-5.0); TRIGLYCERIDES 87 mg/dL (<150)
[2019-03-07 10:23] LABS: DIRECT LDL 101 mg/dL (<100)
[2019-03-07 11:15] LABS: FOLATE 6.36 ng/mL (>2.76)
== END ==
LOC: CCC 08:18
DX: I10 Essential (primary) hypertension (principal); D75.89 Other specified diseases of blood and blood-forming organs; R31.9 Hematuria, unspecified
CPT/HCPCS: 36415; 80048; 80061; 81001; 82607; 82746; 83036; 84443

== ENCOUNTER → 2019-03-19 | Outpatient (CLI) | payer OTHER ==
--- NOTE | 2019-03-19 09:08 | WOMENS IMAGING REPORT ---
EXAM DESCRIPTION: NICK CAI BILATERAL SCREEN COMPLETED DATE/TIME: 03/19/2019 8:42 am REASON FOR STUDY: Z12.31 ENCOUNTER FOR SCREENING MAMMOGRAM FOR MALIGNANT NEOPLASM OF [id number] E NCNTR SCREEN MAMMOGRAM FOR MALIGNANT NEOPLASM OF [place] COMPARISON: None. EXAM PARAMETERS: Standard craniocaudal and mediolateral oblique views of each breast recorded using digital acquisition. Read with the assistance of CAD. .[facility] At Risk Paraprofessional Version 9.2 LIMITATIONS: None. FINDINGS: RIGHT BREAST MASSES: Possible nodular density seen on the CC image only, located 10 cm from the nipple. CALCIFICATIONS: No new or suspicious calcifications. ARCHITECTURAL DISTORTION: None. DEVELOPING DENSITY: None. ASYMMETRY: None noted. OTHER: No other significant findings. LEFT BREAST MASSES: Nodule in the upper-outer breast, located 10 to 12 cm from the nipple. CALCIFICATIONS: No new or suspicious calcifications. ARCHITECTURAL DISTORTION: None. DEVELOPING DENSITY: None. ASYMMETRY: None noted. OTHER: No other significant findings. IMPRESSION: Nodule in the upper-outer left breast. Possible nodular density in the right breast. 0 Incomplete: Needs Additional Imaging Evaluation and/or prior Mammograms for Comparison. BREAST DENSITY: b. There are scattered areas of fibroglandular density. BIRAD: ASSESSMENT: 0 Incomplete: Needs Additional Imaging Evaluation and/or prior Mammograms for C omparison. RECOMMENDATION: RECOMMENDED FOLLOW-UP: Recommend additional evaluation with breast tomosynthesis (pr eferred) or compression views of both breasts and ultrasound of both breasts. The patient will be contacted for additional imaging. COMMENT: The patient has been notified of the results by letter per [place] requirements. Additional no tification policies are in place for contacting patient with suspicious or incomplete findings. Quality ID #225: The [employer] recommends an annual screening mammogram for women aged 40 years or over. This facility utilizes a reminder system to ensure that all patients receive reminder letters, and/or direct phone calls for appointments. This includes reminders for routine scr eening mammograms, diagnostic mammograms, or other Breast Imaging Interventions when appropriate. Th is patient will be placed in the appropriate reminder system. TECHNICAL DOCUMENTATION: FINDING NUMBER: (1) ASSESSMENT: (1) JOB ID: [id number] [employer]- All Rights Reserved Reading location - IP/workstation name: [email or web address]
== END ==
LOC: WI 07:54
PROVIDERS: ATTEND Internal Medicine
DX: Z12.31 Encounter for screening mammogram for malignant neoplasm of breast (principal); N63.21 Unspecified lump in the left breast, upper outer quadrant
CPT/HCPCS: 77067

== ENCOUNTER → 2019-03-26 | Outpatient (CLI) | payer OTHER ==
--- NOTE | 2019-03-26 10:15 | WOMENS IMAGING REPORT ---
EXAM DESCRIPTION: 3D DX MAMMO BILAT; U/S BREAST UNILAT LIMITED COMPLETED DATE/TIME: 03/26/2019 9:16 am; 03/26/2019 9:50 am; 03/26/2019 9:31 am REASON FOR STUDY: R92.2 BILAT DX; RT BREAST R92.2; LT BREAST R92.2 R92.2 INCONCLUSIVE MAMMOGRAM COMPARISON: 03/19/2019 EXAM PARAMETERS: Cone compression craniocaudal and mediolateral oblique views of each breast recorde d using digital acquisition and breast tomosynthesis. Bilateral 90 mediolateral views were obtained . Bilateral breast ultrasound was performed in the upper-outer quadrants. Read with the assistance of CAD: .[employer] Version 9.2 LIMITATIONS: None. FINDINGS: RIGHT BREAST MASSES: No suspicious masses. CALCIFICATIONS: No new or suspicious calcifications. ARCHITECTURAL DISTORTION: None. DEVELOPING DENSITY: None. ASYMMETRY: None noted. OTHER: No other significant findings. LEFT BREAST MASSES: No suspicious masses. Low-density well-circumscribed mammographic nodule 1 cm in size far up per outer quadrant left breast. This subsequently shown to represent a breast parenchymal cyst. CALCIFICATIONS: No new or suspicious calcifications. ARCHITECTURAL DISTORTION: None. DEVELOPING DENSITY: None. ASYMMETRY: None noted. OTHER: No other significant finding. Bilateral breast ultrasound: Ultrasound of the right far lateral breast demonstrates a 7 mm and 5 mm simple cyst. Ultrasound of the left breast upper outer quadrant demonstrate no 11 x 9 mm simple cyst. IMPRESSION: No mammographic or sonographic evidence malignancy. BREAST DENSITY: b. There are scattered areas of fibroglandular density. BIRAD: ASSESSMENT: 2 Benign findings. RECOMMENDATION: RECOMMENDED FOLLOW UP: Please continue yearly bilateral screening mammography/ tomos ynthesis in March 2020 SPECIFIC INTERVENTION/IMAGING/CONSULTATION RECOMMENDED:No additional intervention/ imaging/consultati on needed at this time. COMMUNICATION:Patient notified by letter COMMENT: The patient has been notified of the results by letter per MQSA requirements. Additional no tification policies are in place for contacting patient with suspicious or incomplete findings. Quality ID #[id number]: The [place] [employer] recommends an annual screening mammogram for women aged 40 years or over. This facility utilizes a reminder system to ensure that all patients receive reminder letters, and/or direct phone calls for appointments. This includes reminders for routine scr eening mammograms, diagnostic mammograms, or other Breast Imaging Interventions when appropriate. Th is patient will be placed in the appropriate reminder system. TECHNICAL DOCUMENTATION: FINDING NUMBER: (1) ASSESSMENT: (1) JOB ID: [id number] [employer]- All Rights Reserved Reading location - IP/workstation name: [email or web address]
--- NOTE | 2019-03-26 10:15 | WOMENS IMAGING REPORT ---
EXAM DESCRIPTION: 3D DX MAMMO BILAT; U/S BREAST UNILAT LIMITED COMPLETED DATE/TIME: 03/26/2019 9:16 am; 03/26/2019 9:50 am; 03/26/2019 9:31 am REASON FOR STUDY: R92.2 BILAT DX; RT BREAST R92.2; LT BREAST R92.2 R92.2 INCONCLUSIVE MAMMOGRAM COMPARISON: 03/19/2019 EXAM PARAMETERS: Cone compression craniocaudal and mediolateral oblique views of each breast recorde d using digital acquisition and breast tomosynthesis. Bilateral 90 mediolateral views were obtained . Bilateral breast ultrasound was performed in the upper-outer quadrants. Read with the assistance of CAD: .[employer] Customer Accounts Advisor Version 9.2 LIMITATIONS: None. FINDINGS: RIGHT BREAST MASSES: No suspicious masses. CALCIFICATIONS: No new or suspicious calcifications. ARCHITECTURAL DISTORTION: None. DEVELOPING DENSITY: None. ASYMMETRY: None noted. OTHER: No other significant findings. LEFT BREAST MASSES: No suspicious masses. Low-density well-circumscribed mammographic nodule 1 cm in size far up per outer quadrant left breast. This subsequently shown to represent a breast parenchymal cyst. CALCIFICATIONS: No new or suspicious calcifications. ARCHITECTURAL DISTORTION: None. DEVELOPING DENSITY: None. ASYMMETRY: None noted. OTHER: No other significant finding. Bilateral breast ultrasound: Ultrasound of the right far lateral breast demonstrates a 7 mm and 5 mm simple cyst. Ultrasound of the left breast upper outer quadrant demonstrate no 11 x 9 mm simple cyst. IMPRESSION: No mammographic or sonographic evidence malignancy. BREAST DENSITY: b. There are scattered areas of fibroglandular density. BIRAD: ASSESSMENT: 2 Benign findings. RECOMMENDATION: RECOMMENDED FOLLOW UP: Please continue yearly bilateral screening mammography/ tomos ynthesis in March 2020 SPECIFIC INTERVENTION/IMAGING/CONSULTATION RECOMMENDED:No additional intervention/ imaging/consultati on needed at this time. COMMUNICATION:Patient notified by letter COMMENT: The patient has been notified of the results by letter per MQSA requirements. Additional no tification policies are in place for contacting patient with suspicious or incomplete findings. Quality ID #225: The [employer] recommends an annual screening mammogram for women aged 40 years or over. This facility utilizes a reminder system to ensure that all patients receive reminder letters, and/or direct phone calls for appointments. This includes reminders for routine scr eening mammograms, diagnostic mammograms, or other Breast Imaging Interventions when appropriate. Th is patient will be placed in the appropriate reminder system. TECHNICAL DOCUMENTATION: FINDING NUMBER: (1) ASSESSMENT: (1) JOB ID: [id number] [employer]- All Rights Reserved Reading location - IP/workstation name: [email or web address]
--- NOTE | 2019-03-26 10:15 | WOMENS IMAGING REPORT ---
EXAM DESCRIPTION: 3D DX MAMMO BILAT; U/S BREAST UNILAT LIMITED COMPLETED DATE/TIME: 03/26/2019 9:16 am; 03/26/2019 9:50 am; 03/26/2019 9:31 am REASON FOR STUDY: R92.2 BILAT DX; RT BREAST R92.2; LT BREAST R92.2 R92.2 INCONCLUSIVE MAMMOGRAM COMPARISON: 03/19/2019 EXAM PARAMETERS: Cone compression craniocaudal and mediolateral oblique views of each breast recorde d using digital acquisition and breast tomosynthesis. Bilateral 90 mediolateral views were obtained . Bilateral breast ultrasound was performed in the upper-outer quadrants. Read with the assistance of CAD: .[employer] - [employer]ricing Supervisor Version 9.2 LIMITATIONS: None. FINDINGS: RIGHT BREAST MASSES: No suspicious masses. CALCIFICATIONS: No new or suspicious calcifications. ARCHITECTURAL DISTORTION: None. DEVELOPING DENSITY: None. ASYMMETRY: None noted. OTHER: No other significant findings. LEFT BREAST MASSES: No suspicious masses. Low-density well-circumscribed mammographic nodule 1 cm in size far up per outer quadrant left breast. This subsequently shown to represent a breast parenchymal cyst. CALCIFICATIONS: No new or suspicious calcifications. ARCHITECTURAL DISTORTION: None. DEVELOPING DENSITY: None. ASYMMETRY: None noted. OTHER: No other significant finding. Bilateral breast ultrasound: Ultrasound of the right far lateral breast demonstrates a 7 mm and 5 mm simple cyst. Ultrasound of the left breast upper outer quadrant demonstrate no 11 x 9 mm simple cyst. IMPRESSION: No mammographic or sonographic evidence malignancy. BREAST DENSITY: b. There are scattered areas of fibroglandular density. BIRAD: ASSESSMENT: 2 Benign findings. RECOMMENDATION: RECOMMENDED FOLLOW UP: Please continue yearly bilateral screening mammography/ tomos ynthesis in March 2020 SPECIFIC INTERVENTION/IMAGING/CONSULTATION RECOMMENDED:No additional intervention/ imaging/consultati on needed at this time. COMMUNICATION:Patient notified by letter COMMENT: The patient has been notified of the results by letter per MQSA requirements. Additional no tification policies are in place for contacting patient with suspicious or incomplete findings. Quality ID #225: The [employer] recommends an annual screening mammogram for women aged 40 years or over. This facility utilizes a reminder system to ensure that all patients receive reminder letters, and/or direct phone calls for appointments. This includes reminders for routine scr eening mammograms, diagnostic mammograms, or other Breast Imaging Interventions when appropriate. Th is patient will be placed in the appropriate reminder system. TECHNICAL DOCUMENTATION: FINDING NUMBER: (1) ASSESSMENT: (1) JOB ID: [id number] [employer]- All Rights Reserved Reading location - IP/workstation name: [email or web address]
== END ==
LOC: WI 08:50
PROVIDERS: ATTEND Internal Medicine
DX: N60.02 Solitary cyst of left breast (principal)
CPT/HCPCS: 76642; 77066; G0279; 77062

== ENCOUNTER 2019-04-28 17:42 | Emergency (ER) | payer OTHER ==
--- NOTE | 2019-04-28 17:59 | ER Document Report ---
ED Medical Screen (RME) - General Chief Complaint: Dizziness Stated Complaint: DIZZY,NAUSEA,WEAKNESS Time Seen by Provider: 04/28/19 17:52 Primary Care Provider: ANTHONY BLAKELY MD [Primary Care Provider] - Follow up as needed Mode of Arrival: Ambulatory Information source: Patient Notes: Patient states that 30 minutes prior to arrival she had an episode in which she became diaphoretic had weakness in her lower extremities and generalized facial numbness. Patient states she became nauseous and had dizziness. Patient states symptoms are now completely resolved. Patient denies any chest discomfort headache or shortness of breath. Patient does have a history of hypertension. I have greeted and performed a rapid initial assessment of this patient. A comprehensive ED assessment and evaluation of the patient, analysis of test results and completion of the medical decision making process will be conducted by additional ED providers. TRAVEL OUTSIDE OF THE [place] IN LAST 30 DAYS: No - Related Data Allergies/Adverse Reactions: No Known Drug Allergies Allergy (Verified 02/13/19 20:21) Home Medications: Amlodipine Past Medical History - Social History Frequency of alcohol use: None Drug Abuse: None Physical Exam - Vital signs Vitals: Temp Pulse Resp BP Pulse Ox 97.9 F 74 18 113/80 97 04/28/19 17:46 04/28/19 17:46 04/28/19 17:46 04/28/19 17:46 04/28/19 17:46 - General General appearance: Appears well, Alert - Cardiovascular Rhythm: Regular Heart sounds: S1 appreciated, S2 appreciated Course - Vital Signs Vital signs: Temp Pulse Resp BP Pulse Ox 97.9 F 74 18 113/80 97 04/28/19 17:46 04/28/19 17:46 04/28/19 17:46 04/28/19 17:46 04/28/19 17:46 Doctor's Discharge - Discharge Referrals: ANTHONY BLAKELY MD [Primary Care Provider] - Follow up as needed
[2019-04-28 18:31] LABS: ABSOLUTE EOSINOPHILS # (AUTO) 0.1 10^3/uL (0.0-0.6); ABSOLUTE MONOCYTES (AUTO) 0.9 10^3/uL (0.1-1.4); ABSOLUTE NEUT (AUTO) 4.9 10^3/uL (1.7-8.2); BASOPHILS % (AUTO) 0.4 % (0-2); EOSINOPHILS % (AUTO) 0.7 % (0-6); HEMATOCRIT 42.6 % (36.0-47.0); HEMOGLOBIN 14.8 g/dL (12.0-15.5); LYMPHOCYTES % (AUTO) 33.3 % (13-45); MEAN CORPUSCULAR HEMOGLOBIN 34.2 pg (27.0-33.4); MEAN CORPUSCULAR HGB CONC 34.6 g/dL (32.0-36.0); MEAN CORPUSCULAR VOLUME 99 fl (80-97); MONOCYTES % (AUTO) 10.2 % (3-13); PLATELET COUNT 227 10^3/uL (150-450); RED BLOOD COUNT 4.31 10^6/uL (3.72-5.28); RED CELL DISTRIBUTION WIDTH 13.7 % (11.5-14.0); SEGMENTED NEUTROPHILS % (AUTO) 55.4 % (42-78); TOTAL CELLS COUNTED % (AUTO) 100 %; WHITE BLOOD COUNT 8.9 10^3/uL (4.0-10.5)
[2019-04-28 18:50] LABS: ALBUMIN 3.3 g/dL (3.5-5.0); ALKALINE PHOSPHATASE 88 U/L (38-126); ANION GAP 7 (5-19); ASPARTATE AMINO TRANSFERASE 50 U/L (14-36); BILIRUBIN,TOTAL 0.4 mg/dL (0.2-1.3); BLOOD UREA NITROGEN 15 mg/dL (7-20); CALCIUM 9.1 mg/dL (8.4-10.2); CARBON DIOXIDE 29 mmol/L (22-30); CHLORIDE 104 mmol/L (98-107); GLUCOSE 142 mg/dL (75-110); POTASSIUM 3.8 mmol/L (3.6-5.0); TOTAL PROTEIN 6.4 g/dL (6.3-8.2)
--- NOTE | 2019-04-28 18:53 | RADIOLOGY REPORT (SQ) ---
EXAM DESCRIPTION: CT HEAD WITHOUT COMPLETED DATE/TIME: 04/28/2019 6:36 pm REASON FOR STUDY: dizziness, facial numbness COMPARISON: 02/13/2019 TECHNIQUE: Axial images acquired through the brain without intravenous contrast. Images reviewed wit h bone, brain and subdural windows. Images stored on PACS. All CT scanners at this facility use dose modulation, iterative reconstruction, and/or weight based d osing when appropriate to reduce radiation dose to as low as reasonably achievable (ALARA). [facility]: Dose Right [facility]: CareDose [facility]: Dose Right [facility]: Teradose 4D [facility]: [employer] RADIATION DOSE: CT Rad equipment meets quality standard of care and radiation dose reduction techniq ues were employed. CTDIvol: 53.2 mGy. DLP: 1044 mGy-cm.. LIMITATIONS: None. FINDINGS: VENTRICLES: Normal size and contour. CEREBRUM: No hemorrhage. No midline shift. Scattered Areas of low density in the white matter most likely due to chronic micro-vascular ischemic change. No evidence for acute large vessel infarction. CEREBELLUM: No masses. No hemorrhage. No alteration of density. No evidence for acute infarction. EXTRA-AXIAL SPACES: No fluid collections. ORBITS AND GLOBE: No intra- or extraconal masses. Normal contour of globe without masses. CALVARIUM: No fracture. PARANASAL SINUSES: No fluid or mucosal thickening. SOFT TISSUES: No mass or hematoma. OTHER: No other significant finding. IMPRESSION: No hemorrhage. No midline shift. Scattered Areas of low density in the white matter mo st likely due to chronic micro-vascular ischemic change, however demyelinating process is also a cons ideration. No evidence for acute large vessel infarction. EVIDENCE OF ACUTE STROKE: NO. TECHNICAL DOCUMENTATION: JOB ID: [id number] [place]-72 Quality ID # [id number]: Final reports with documentation of one or more dose reduction techniques (e.g., Au tomated exposure control, adjustment of the mA and/or kV according to patient size, use of iterative reconstruction technique) 2010 [employer]- All Rights Reserved Reading location - IP/workstation name: [employer]
--- NOTE | 2019-04-28 18:55 | RADIOLOGY REPORT (SQ) ---
EXAM DESCRIPTION: CHEST 2 VIEWS COMPLETED DATE/TIME: 04/28/2019 6:40 pm REASON FOR STUDY: dizziness, weak COMPARISON: 02/14/2019 TECHNIQUE: Frontal and lateral radiographic views of the chest acquired. NUMBER OF VIEWS: Two view. LIMITATIONS: None. FINDINGS: LUNGS AND PLEURA: No pneumothorax. No consolidation or pleural effusion. MEDIASTINUM AND HILAR STRUCTURES: Stable. HEART AND VASCULAR STRUCTURES: Stable. BONES: No acute findings. HARDWARE: None in the chest. OTHER: No other significant finding. IMPRESSION: NO ACUTE FINDINGS. TECHNICAL DOCUMENTATION: JOB ID: [id number] [place]-72 2010 [employer]- All Rights Reserved Reading location - IP/workstation name: [email or web address]
--- NOTE | 2019-04-28 20:43 | ER Document Report ---
ED General - General Chief Complaint: Dizziness Stated Complaint: DIZZY,NAUSEA,WEAKNESS Time Seen by Provider: 04/28/19 17:52 [facility]NO [facility]AL MD[facility] - Follow up tomorrow ANTHONY BLAKELY MD [Primary Care Provider] - Follow up tomorrow Mode of Arrival: Ambulatory Information source: Patient Notes: 49-year-old female with hypertension presents that 30 minutes prior to arrival she had an episode in which she became diaphoretic had weakness in her lower extremities and generalized facial numbness. Patient states she became nauseous and had dizziness. Patient states symptoms are now completely resolved. Patient denies any chest discomfort headache or shortness of breath. Patient does have a history of hypertension. Patient denies any recent illness. She states she has been compliant with her blood pressure medication. She does state that she has been under tremendous stress with a recent divorce and this afternoon found out that she has to go to mediation. Patient has had no recurrence of symptoms and 4 hours. TRAVEL OUTSIDE OF THE [place] IN LAST 30 DAYS: No - HPI Onset: This afternoon Onset/Duration: Sudden, Gone Quality of pain: No pain Severity: None Pain Level: Denies Associated symptoms: Nausea, Weakness - Resolved. denies: Chest pain, Diarrhea, Headache, Vomiting, Shortness of breath Exacerbated by: Denies Relieved by: Denies Similar symptoms previously: Yes Recently seen / treated by doctor: Yes - Related Data Allergies/Adverse Reactions: No Known Drug Allergies Allergy (Verified 02/13/19 20:21) Home Medications: Amlodipine Past Medical History - General Information source: Patient - Social History Smoking Status: Never Smoker Frequency of alcohol use: None Drug Abuse: None Lives with: Family Family History: Reviewed & Not Pertinent Patient has suicidal ideation: No Patient has homicidal ideation: No - Past Medical History Cardiac Medical History: Reports: Hx Hypertension Past Surgical History: Reports: Hx Hysterectomy Review of Systems - Review of Systems Notes: REVIEW OF SYSTEMS: CONSTITUTIONAL : Denies fever, chills, or sweats. Denies recent illness. Denies weight loss, recent hospitalizations. EENT: Denies visual changes, eye pain. Denies sore throat, oral lesions, difficulty swallowing. CARDIOVASCULAR: Denies chest pain. Denies palpitations. Denies lower extremity edema. RESPIRATORY: Denies cough. Denies shortness of breath, wheezing. GASTROINTESTINAL: Denies abdominal pain or distention. Denies vomiting, or diarrhea. Denies blood in vomitus, stools, or per rectum. Denies black, tarry stools. Denies constipation. GENITOURINARY: Denies difficulty urinating, painful urination, frequency, blood in urine, or vaginal discharge. MUSCULOSKELETAL: Denies back or neck pain or stiffness. Denies joint pain or swelling. SKIN: Denies rash, lesions or sores. HEMATOLOGIC : Denies easy bruising or bleeding. LYMPHATIC: Denies swollen glands. NEUROLOGICAL: Denies confusion or altered mental status. Denies loss of consciousness. Denies lightheadedness. Denies headache. Denies paralysis. Denies problems difficulty with ambulation, slurred speech. Denies sensory loss, numbness, or tingling. Denies seizures. PSYCHIATRIC: Denies anxiety or stress. Denies depression, suicidal ideation, or homicidal ideation. Denies visual or auditory hallucinations. Physical Exam - Vital signs Vitals: Temp Pulse Resp BP Pulse Ox 97.9 F 74 18 113/80 97 04/28/19 17:46 04/28/19 17:46 04/28/19 17:46 04/28/19 17:46 04/28/19 17:46 - Notes Notes: PHYSICAL EXAMINATION: GENERAL: Well-appearing, well-nourished and in no acute distress. HEAD: Atraumatic, normocephalic. EYES: Pupils equal round and reactive to light, extraocular movements intact, conjunctiva are normal. ENT: Nares patent, oropharynx clear without exudates. Moist mucous membranes. NECK: Normal range of motion, supple without lymphadenopathy LUNGS: Breath sounds clear to auscultation bilaterally and equal. No wheezes rales or rhonchi. HEART: Regular rate and rhythm without murmurs ABDOMEN: Soft, nontender, nondistended abdomen. No guarding, no rebound. No masses appreciated. Female : deferred Musculoskeletal: Normal range of motion, no pitting or edema. No cyanosis. NEUROLOGICAL: Mental status; alert and oriented x3. Cranial nerves II through XII intact. Sensation intact to sharp/dull differentiation in all extremities. Motor; normal tone. No abnormal movements appreciated. No pronator drift. Strength tested and 5/5 in bilateral wrist flexion/extension, elbow flexion/extension, shoulder abduction, straight leg raise, knee flexion/extension, ankle dorsiflexion/plantar flexion. Patient ambulates with a steady gait. Coordination; no ataxia. Finger to nose and heel to hudson testing intact bilaterally. Reflexes; brachial radialis, biceps, and patellar reflexes within normal limits and symmetric bilaterally. Babinski with downgoing toes bilaterally. PSYCH: Normal mood, normal affect. SKIN: Warm, Dry, normal turgor, no rashes or lesions noted. Course - Re-evaluation Re-evalutation: 04/28/19 20:45 Laboratory 04/28/19 04/28/19 04/28/19 18:16 18:16 18:16 WBC 8.9 RBC 4.31 Hgb 14.8 Hct 42.6 MCV 99 H MCH 34.2 H MCHC 34.6 RDW 13.7 Plt Count 227 Lymph % (Auto) 33.3 Liberty % (Auto) 10.2 Eos % (Auto) 0.7 Baso % (Auto) 0.4 Absolute Neuts (auto) 4.9 Absolute Lymphs (auto) 3.0 Absolute Monos (auto) 0.9 Absolute Eos (auto) 0.1 Absolute Basos (auto) 0.0 Seg Neutrophils % 55.4 Sodium 140.0 Potassium 3.8 Chloride 104 Carbon Dioxide 29 Anion Gap 7 BUN 15 Creatinine 0.74 Est GFR ( Amer) > 60 Est GFR (MDRD) Non-Af > 60 Glucose 142 H Calcium 9.1 Total Bilirubin 0.4 Direct Bilirubin 0.0 Neonat Total Bilirubin Not Reportable Neonat Direct Bilirubin Not Reportable Neonat Indirect Bili Not Reportable AST 50 H ALT 82 Alkaline Phosphatase 88 Troponin I < 0.012 Total Protein 6.4 Albumin 3.3 L Chest X-Ray 04/28/19 17:53 IMPRESSION: NO ACUTE FINDINGS. Head CT 04/28/19 17:56 IMPRESSION: No hemorrhage. No midline shift. Scattered Areas of low density in the white matter most likely due to chronic micro-vascular ischemic change, however demyelinating process is also a consideration. No evidence for acute large vessel infarction. EVIDENCE OF ACUTE STROKE: NO. Temp Pulse Resp BP Pulse Ox 97.9 F 74 18 113/80 97 04/28/19 17:46 04/28/19 17:46 04/28/19 17:46 04/28/19 17:46 04/28/19 17:46 49-year-old female presents with an episode of bilateral facial numbness and bilateral lower extremity weakness that occurred while at work today approximately 4 hours prior to arrival and self resolved without intervention. Vital signs reviewed and within normal limits. Patient does not appear toxic or dehydrated. She is in no acute distress. No evidence of endorgan damage on laboratory testing. CT of the head showed no evidence of acute stroke but did show chronic microvascular ischemic changes. Also states that a demyelinating process should be considered. At this time patient was updated on incidental findings and provided a copy of her CT report to bring to her primary care physician for possible outpatient MRI. Patient has absolutely no neuro deficits. Patient was evaluated and treated as appropriate for the patient's presenting symptoms and complaint, with consideration of any critical or life threatening conditions that may be associated with their obtained history and exam as noted above. All results were discussed with patient and... Patient provided the opportunity to ask questions, and express concerns. Patient was educated on treatments based on their presumed diagnosis as noted above. At this time we will discharge the patient with return precautions and follow-up recommendations. Verbal discharge instructions given a the bedside. Medication warnings reviewed. Patient is in agreement with this plan and has verbalized understanding of return precautions. After careful consideration I feel that that patient can be safely discharged from the emergency department, they were advised to followup with a primary care physician in 2-3 days. Dictation on this chart was performed using voice recognition software and may result in unintended grammatical, spelling, syntax or errors. - Vital Signs Vital signs: Temp Pulse Resp BP Pulse Ox 97.9 F 74 18 113/80 97 04/28/19 17:46 04/28/19 17:46 04/28/19 17:46 04/28/19 17:46 04/28/19 17:46 - Laboratory Result Diagrams: 04/28/19 18:16 04/28/19 18:16 Laboratory results interpreted by me: 04/28/19 04/28/19 18:16 18:16 MCV 99 H MCH 34.2 H Glucose 142 H AST 50 H Albumin 3.3 L - Diagnostic Test Radiology reviewed: Image reviewed, Reports reviewed - EKG Interpretation by Me EKG shows normal: Sinus rhythm Rate: Normal Rhythm: NSR When compared to previous EKG there are: No significant change Discharge - Discharge Clinical Impression: Transient weakness of lower extremity, Transient paresthesia Condition: Good Disposition: HOME, SELF-CARE Instructions: Numbness or Paresthesia ([facility]), Weakness ([facility]) Additional Instructions: Please bring the copy of your CAT scan report to your primary care physician in the next few days. They may decide that you will require an MRI. Follow up with your [id number] hours for further care or return to the ED IMMEDIATELY if symptoms worsen or you have any concerns. If you cannot afford to follow up with your primary care physician a list of low cost clinics have been provided at the end of your discharge papers as well. Most prescribed medications have multiple side effects. The safest thing to do is when filling your prescription speak to your pharmacist regarding possible interactions with your normal home medications and over the counter medications such as Ibuprofen, Tylenol, Benadryl. If you experience any symptoms that cause you discomfort or concern you should discontinue the medication immediately and return to the emergency room or call your primary care physician. Referrals: ANTHONY BLAKELY MD [Primary Care Provider] - Follow up tomorrow [facility] [NO LOCAL MD] - Follow up tomorrow ED NIH Stroke Scale - NIH Stroke Scale *: 1. NIH scale should be completed with appropriate accompanying assessment tools. *: 2. The NIH should reflect what the patient is capable of doing and should not be coached by the clinician. 1a. Level of Consciousness: 0=Alert;keenly responsive -: 1=Drowsy -: 2=Obtunded -: 3=Coma/unresponsive or reflex to noxious stimuli. 1a. Responses: 0 1b. Orientation Questions: a. What month is it? -: b. How old are you? -: 0=Answers both questions correctly. -: 1=Answers one question correctly or patient is intubated or has orotracheal trauma. -: 2=Answers neither question correctly. 1b. Responses: 0 1c. Response to commands: a. Open and close eyes? -: b. Casing Blower and release hand? -: Credit is given despite weakness. Demonstration of task is permitted. Substitute command if hands cannot be used. -: 0=Performs both tasks correctly -: 1=Performs one task correctly -: 2=Performs neither task correctly 1c. Responses: 0 2. Gaze: Establish eye contact and instruct patient to "Follow my finger" -: 0=Normal -: 1=Partial gaze palsy. Gaze is abnormal in one or both eyes, but where forced deviation or total gaze paresis is not present. -: 2=Forced deviation or total gaze paresis. 2. Responses: 0 3. Visual Wiley: Sees fingers in all four quadrants. -: 0=No visual loss. -: 1=Partial hemianopsia. -: 2=Complete hemianopsia. -: 3=Bilateral hemianopsia (including Cortical blindness) 3. Responses: 0 4. Facial Movement: Instruct patient to: -: a. Show me your teeth -: b. Raise your eyebrows -: c. Close your eyes -: d. Smile -: 0=Normal symmetrical movement -: 1=Minor paralysis (flattened nasolabial fold, asymmetry on smiling). -: 2=Partial paralysis (total or near total paralysis of lower face). -: 3=Complete paralysis of upper and lower face 4. Responses: 0 5. Motor functions (left arm): Alternate sides and extend each arm with palms down (90 degrees if sitting or 45 degrees for supine). -: 0=No drift;limb holds for full 10 seconds. -: 1=Drift; limb holds but drifts down before full 10 seconds, but does not hit bed. -: 2=Some effort against gravity; limb cannot get to or maintain position. -: 3=No effort against gravity; limb falls. -: 4=No movement. -: UN=Amputation, joint fusion, explain in comments. 5. Responses (left arm): 0 5. Motor Functions (right arm): Alternate sides and extend each arm with palms down (90 degrees if sitting or 45 degrees for supine). -: 0=No drift;limb holds for full 10 seconds. -: 1=Drift; limb holds but drifts down before full 10 seconds, but does not hit bed. -: 2=Some effort against gravity; limb cannot get to or maintain position. -: 3=No effort against gravity; limb falls. -: 4=No movement. -: UN=Amputation, joint fusion, explain in comments. 5. Responses (right arm): 0 6. Motor Functions (left leg): With patient lying supine, alternate sides and extend each leg (30 degrees always while supine). -: 0=No drift, leg holds position for full 5 seconds -: 1=Drift; leg falls before full 5 seconds but does not hit bed. -: 2=Some effort against gravity, leg falls to bed but some effort against gravity. -: 3=No effort against gravity, leg falls to bed immediately. -: 4=No movement. -: UN=Amputation, joint fusion; explain in comments. 6. Responses (left leg): 0 6. Motor Functions (right leg): With patient lying supine, alternate sides and extend each leg (30 degrees always while supine). -: 0=No drift, leg holds position for full 5 seconds -: 1=Drift; leg falls before full 5 seconds but does not hit bed. -: 2=Some effort against gravity, leg falls to bed but some effort against gravity. -: 3=No effort against gravity, leg falls to bed immediately. -: 4=No movement. -: UN=Amputation, joint fusion; explain in comments. 6. Responses (right leg): 0 7. Limb Ataxia: With eyes open instruct patient to: -: a. "Touch your finger to your nose". -: b. "Touch your heel to your hudson" -: 0=Absent -: 1=Present in one limb. -: 2=Present in two limbs. -: UN=Amputation or joint fusion; explain in comments. 7. Responses: 0 8. Sensory: Test sensation using pinprick or noxious stimuli. Test as many body parts as possible. -: 0=Normal;no sensory loss -: 1=Mile to moderate sensory loss (patient feels pin prick but is less sharp on affected side). -: 2=Severe or total sensory loss. 8. Responses: 0 9. Best Language: Instruct patient to: -: a. "Describe what you see in this picture." -: b. "Name the items in this picture." -: c. "Read these sentences." -: 0=No aphasia, normal -: 1=Mild to moderate aphasia. -: 2=Severe aphasia -: 3=Mute, global aphasia, no usable speech or auditory comprehension. 9. Responses: 0 10. Articulation, Dysarthia: Instruct patient to: -: "Read these words" or "Repeat these words" -: 0=Normal -: 1=Mild to moderate; patient may slur some words but can be understood without difficulty. -: 2=Severe; patients speech so slurred as to be unintelligible in the absence of dysphasia. -: UN=Intubated or other physical barrier, explain in comments. 10. Responses: 0 11. Extinction or inattention: 0=No abnormality -: 1= Visual, tactile, auditory, spatial, or personal inattention or extinction to bilateral simulation in one or the sensory modalities. -: 2=Profound mason-inattention or mason-inattention to more than one modality; does not recognize own hand. 11. Responses: 0 Total Score: 0
[2019-04-28 21:01] VITALS: BP 122/72
--- NOTE | 2019-04-28 23:46 | EKG REPORT ---
SEVERITY:- NORMAL ECG - SINUS RHYTHM : Confirmed by: Bradley Mcguire 28-Apr-2019 23:46:15
== END 2019-04-28 21:01 | disposition home or self-care (01) ==
LOC: ER 17:42
DX: R53.1 Weakness (principal); R20.0 Anesthesia of skin; R61 Generalized hyperhidrosis; R11.0 Nausea; R42 Dizziness and giddiness; I10 Essential (primary) hypertension; Z79.899 Other long term (current) drug therapy; Z63.5 Disruption of family by separation and divorce
CPT/HCPCS: 36415; 70450; 71046; 80053; 84484; 85025; 93005; 93010; 99284

== ENCOUNTER → 2019-05-16 | Outpatient (CLI) | payer OTHER ==
--- NOTE | 2019-05-16 18:14 | RADIOLOGY REPORT (SQ) ---
EXAM DESCRIPTION: MRI HEAD COMBO COMPLETED DATE/TIME: 05/16/2019 5:03 pm REASON FOR STUDY: FACIAL NUMBNESS, DIZZINESS COMPARISON: 04/28/2019 CT TECHNIQUE: Multiplanar imaging includes noncontrasted T1, T2, FLAIR, and Diffusion with ADC map seq uences. Contrast enhanced T1 images. Images stored on PACS. CONTRAST TYPE AND DOSE: 15 mL Dotarem. RENAL FUNCTION: GFR > 60. LIMITATIONS: None. FINDINGS: ANATOMY: No anomalies. Normal vascular flow voids. Pituitary fossa normal. CSF SPACES: Normal size and contour. No hemorrhage. CEREBRUM: Few high-signal intensity lesions scattered throughout the white matter on FLAIR imaging wi th distribution suggesting microvascular ischemic change versus demyelinating disease. Sulci and gyri normal in size and contour. No evidence of hemorrhage, mass or extraaxial fluid collection. No enhan cing lesions. POSTERIOR FOSSA: No signal alteration. No hemorrhage. No edema, masses or mass effect. Internal audit ory canals, cerebello-pontine angles, mastoids normal. DIFFUSION: Negative for acute or subacute infarction. ORBITS: No masses. Globes normal. PARANASAL SINUSES: No fluid levels. Mucosa normal. OTHER: No other significant finding. IMPRESSION: NO ENHANCING LESIONS. Few high-signal intensity lesions scattered throughout the white m atter on FLAIR imaging with distribution suggesting microvascular ischemic change versus demyelinatin g disease. . EVIDENCE OF ACUTE STROKE: NO. TECHNICAL DOCUMENTATION: JOB ID: [id number] [place]-[id number] 2010 [employer]- All Rights Reserved Reading location - IP/workstation name: [email or web address]
== END ==
LOC: RAD 16:04
PROVIDERS: ATTEND Family Medicine
DX: R42 Dizziness and giddiness (principal); R20.0 Anesthesia of skin
CPT/HCPCS: 70553; A9576

== ENCOUNTER → 2019-05-16 | Outpatient (CLI) | payer OTHER ==
[2019-05-16 13:58] LABS: ABSOLUTE EOSINOPHILS # (AUTO) 0.1 10^3/uL (0.0-0.6); ABSOLUTE LYMPHOCYTES (AUTO) 1.8 10^3/uL (0.5-4.7); ABSOLUTE MONOCYTES (AUTO) 0.5 10^3/uL (0.1-1.4); ABSOLUTE NEUT (AUTO) 3.4 10^3/uL (1.7-8.2); APPEARANCE,URINE SLIGHTLY-CLOUDY; BASOPHILS % (AUTO) 0.3 % (0-2); BILIRUBIN,URINE NEGATIVE (NEGATIVE); COLOR,URINE YELLOW; EOSINOPHILS % (AUTO) 0.9 % (0-6); GLUCOSE, URINE NEGATIVE (NEGATIVE); HEMATOCRIT 38.8 % (36.0-47.0); HEMOGLOBIN 13.4 g/dL (12.0-15.5); KETONES,URINE NEGATIVE (NEGATIVE); LEUKOCYTE ESTERASE,URINE NEGATIVE (NEGATIVE); LYMPHOCYTES % (AUTO) 30.8 % (13-45); MEAN CORPUSCULAR HEMOGLOBIN 33.9 pg (27.0-33.4); MEAN CORPUSCULAR HGB CONC 34.6 g/dL (32.0-36.0); MEAN CORPUSCULAR VOLUME 98 fl (80-97); MONOCYTES % (AUTO) 9.3 % (3-13); NITRITE,URINE NEGATIVE (NEGATIVE); PLATELET COUNT 255 10^3/uL (150-450); PROTEIN,URINE 30 mg/dL (NEGATIVE); RED BLOOD COUNT 3.97 10^6/uL (3.72-5.28); RED CELL DISTRIBUTION WIDTH 13.5 % (11.5-14.0); SEGMENTED NEUTROPHILS % (AUTO) 58.7 % (42-78); TOTAL CELLS COUNTED % (AUTO) 100 %; URINE SPECIFIC GRAVITY 1.016; WHITE BLOOD COUNT 5.8 10^3/uL (4.0-10.5)
[2019-05-16 14:34] LABS: CALCIUM 9.5 mg/dL (8.4-10.2); CHOLESTEROL 206.47 mg/dL (0-200); TRIGLYCERIDES 62 mg/dL (<150)
[2019-05-16 14:37] LABS: ERYTHROCYTE SEDIMENTATION RATE 29 mm/hr (0-30)
[2019-05-16 14:45] LABS: DIRECT LDL 121 mg/dL (<100)
[2019-05-16 14:47] LABS: FREE T4 (FREE THYROXINE) 0.81 ng/dL (0.78-2.19)
[2019-05-16 15:01] LABS: THYROID STIMULATING HORMONE 0.76 uIU/mL (0.47-4.68)
[2019-05-16 15:36] LABS: FOLATE 9.48 ng/mL (>2.76)
== END ==
LOC: CCC 13:04
DX: I10 Essential (primary) hypertension (principal); D51.9 Vitamin B12 deficiency anemia, unspecified
CPT/HCPCS: 36415; 80061; 81001; 82310; 82607; 82746; 83036; 83735; 84439; 84443; 85025; 85652; 87086